=== PATIENT | male | born 1960 | race Caucasian/White ===

== ENCOUNTER 2016-12-25 09:54 | Outpatient (CLI) | payer MEDICAID | END 2016-12-25 09:55 | disposition home or self-care (01) | DX: Z86.19 Personal history of other infectious and parasitic diseases (principal) ==

== ENCOUNTER 2016-12-26 15:26 | Outpatient (CLI) | payer MEDICAID | END 2016-12-26 15:27 | disposition home or self-care (01) | DX: Z86.19 Personal history of other infectious and parasitic diseases (principal) ==

== ENCOUNTER 2017-03-06 09:00 | Outpatient (CLI) | payer MEDICAID | END 2017-03-06 09:01 | disposition home or self-care (01) | DX: M51.36 Other intervertebral disc degeneration, lumbar region (principal); M25.512 Pain in left shoulder ==

== ENCOUNTER 2017-03-12 09:07 | Outpatient (CLI) | payer MEDICAID | END 2017-03-12 09:08 | disposition home or self-care (01) | DX: I10 Essential (primary) hypertension (principal); E78.5 Hyperlipidemia, unspecified ==

== ENCOUNTER 2018-04-15 08:00 | Outpatient (CLI) | payer MEDICAID ==
[2018-04-15 19:04] LABS: ALBUMIN 3.9 g/dL (3.2-5.5); ALKALINE PHOSPHATASE 69 IU/L (42-121); ALT ALANINE AMINOTRANSFERASE 31 IU/L (10-60); AST ASPARTATE AMINOTRANSFERASE 23 IU/L (10-42); BILIRUBIN,DIRECT 0.2 mg/dL (0.1-0.5); BILIRUBIN,TOTAL 1.3 mg/dL (0.2-1.0); CHOL/HDL RATIO 3.2 (<5.0); CHOLESTEROL 143 mg/dL; HDL CHOLESTEROL 45 mg/dL; LDL CHOLESTEROL,CALCULATED 69 mg/dL; LDL/HDL RATIO 1.5 (<3.6); TOTAL PROTEIN 7.5 g/dL (6.7-8.2); VLDL CHOLESTEROL 29 mg/dL
== END 2018-04-15 08:01 | disposition home or self-care (01) ==
LOC: LAB.S 08:00
PROVIDERS: ATTEND Nurse Practitioner Family
DX: E78.5 Hyperlipidemia, unspecified (principal)
CPT/HCPCS: 36415; 80061; 80076; 83721

== ENCOUNTER 2018-11-25 08:00 | Outpatient (CLI) | payer MEDICAID ==
[2018-11-25 17:53] LABS: BASOPHILS % (AUTO) 0.5 %; EOSINOPHILS # (AUTO) 0.1 10^3/uL (0.0-0.7); EOSINOPHILS % (AUTO) 1.4 %; HGB - HEMOGLOBIN 14.9 g/dL (14.0-18.0); LYMPHOCYTES # (AUTO) 1.4 10^3/uL (1.5-3.5); LYMPHOCYTES % (AUTO) 19.6 %; MEAN CORPUSCULAR HEMOGLOBIN 30.2 pg (27.0-31.0); MEAN CORPUSCULAR HGB CONC 32.8 g/dL (32.0-36.0); MEAN PLATELET VOLUME 10.2 fL (7.4-11.4); MONOCYTES # (AUTO) 0.4 10^3/uL (0.0-1.0); MONOCYTES % (AUTO) 5.5 %; NEUTROPHILS # (AUTO) 5.1 10^3/uL (1.5-6.6); PLT - PLATELET COUNT 197 10^3/uL (130-450); RED BLOOD COUNT 4.92 10^6/uL (4.70-6.10); RED CELL DISTRIBUTION WIDTH 14.5 % (12.0-15.0); WHITE BLOOD COUNT 7.1 x10^3/uL (4.8-10.8)
[2018-11-25 18:25] LABS: ALBUMIN 4.2 g/dL (3.2-5.5); ALBUMIN/GLOBULIN RATIO 1.2 (1.0-2.2); ALKALINE PHOSPHATASE 70 IU/L (42-121); ALT ALANINE AMINOTRANSFERASE 15 IU/L (10-60); AST ASPARTATE AMINOTRANSFERASE 18 IU/L (10-42); BILIRUBIN,TOTAL 1.1 mg/dL (0.2-1.0); BUN - BLOOD UREA NITROGEN 22 mg/dL (6-20); CALCIUM 9.1 mg/dL (8.5-10.3); CARBON DIOXIDE - CO2 31 mmol/L (21-32); CHLORIDE 98 mmol/L (101-111); CHOLESTEROL 225 mg/dL; CREATININE 1.6 mg/dL (0.6-1.2); GFR - MDRD 44 (>89); GLUCOSE 118 mg/dL (70-100); HDL CHOLESTEROL 56 mg/dL; LDL CHOLESTEROL,CALCULATED 131 mg/dL; LDL/HDL RATIO 2.3 (<3.6); SODIUM 138 mmol/L (135-145); TOTAL PROTEIN 7.8 g/dL (6.7-8.2); VLDL CHOLESTEROL 38 mg/dL
== END 2018-11-25 23:59 | disposition home or self-care (01) ==
LOC: LAB.S 08:00
PROVIDERS: ATTEND Nurse Practitioner Family
DX: I10 Essential (primary) hypertension (principal); E78.5 Hyperlipidemia, unspecified; Z12.5 Encounter for screening for malignant neoplasm of prostate
CPT/HCPCS: 36415; 80053; 80061; 83721; 84153; 84443; 85025

== ENCOUNTER 2018-12-02 08:00 | Outpatient (CLI) | payer MEDICAID ==
[2018-12-02 17:58] LABS: CREATININE 1.6 mg/dL (0.6-1.2)
== END 2018-12-02 23:59 | disposition home or self-care (01) ==
LOC: LAB.S 08:00
PROVIDERS: ATTEND Nurse Practitioner Family
DX: N18.3 Chronic kidney disease, stage 3 (moderate) (principal)
CPT/HCPCS: 36415; 80048

== ENCOUNTER 2019-03-24 08:00 | Outpatient (CLI) | payer MEDICAID ==
[2019-03-24 17:51] LABS: CHOL/HDL RATIO 3.3 (<5.0); CHOLESTEROL 211 mg/dL; HDL CHOLESTEROL 63 mg/dL; LDL CHOLESTEROL,CALCULATED 128 mg/dL; VLDL CHOLESTEROL 20 mg/dL
== END 2019-03-24 23:59 | disposition home or self-care (01) ==
LOC: LAB.S 08:00
PROVIDERS: ATTEND Nurse Practitioner Family
DX: E78.5 Hyperlipidemia, unspecified (principal)
CPT/HCPCS: 36415; 80061; 83721

== ENCOUNTER 2020-05-17 08:50 | Outpatient (CLI) | payer MEDICAID ==
[2020-05-17 15:08] LABS: BASOPHILS # (AUTO) 0.1 10^3/uL (0.0-0.1); BASOPHILS % (AUTO) 0.7 %; EOSINOPHILS # (AUTO) 0.1 10^3/uL (0.0-0.7); HGB - HEMOGLOBIN 14.5 g/dL (14.0-18.0); LYMPHOCYTES # (AUTO) 1.2 10^3/uL (1.5-3.5); LYMPHOCYTES % (AUTO) 17.1 %; MEAN CORPUSCULAR HEMOGLOBIN 29.4 pg (27.0-31.0); MEAN CORPUSCULAR HGB CONC 31.7 g/dL (32.0-36.0); MEAN CORPUSCULAR VOLUME 92.5 fL (80.0-94.0); MEAN PLATELET VOLUME 11.8 fL (7.4-11.4); MONOCYTES # (AUTO) 0.4 10^3/uL (0.0-1.0); MONOCYTES % (AUTO) 5.1 %; NEUTROPHILS # (AUTO) 5.2 10^3/uL (1.5-6.6); PLT - PLATELET COUNT 180 10^3/uL (130-450); RED BLOOD COUNT 4.94 10^6/uL (4.70-6.10); RED CELL DISTRIBUTION WIDTH 13.7 % (12.0-15.0); WHITE BLOOD COUNT 6.8 x10^3/uL (4.8-10.8)
[2020-05-17 16:07] LABS: ALBUMIN 4.4 g/dL (3.2-5.5); ALBUMIN/GLOBULIN RATIO 1.4 (1.0-2.2); ALKALINE PHOSPHATASE 62 IU/L (42-121); ALT ALANINE AMINOTRANSFERASE 18 IU/L (10-60); AST ASPARTATE AMINOTRANSFERASE 20 IU/L (10-42); BILIRUBIN,TOTAL 0.8 mg/dL (0.2-1.0); BUN - BLOOD UREA NITROGEN 29 mg/dL (6-20); CALCIUM 9.1 mg/dL (8.5-10.3); CARBON DIOXIDE - CO2 26 mmol/L (21-32); CHLORIDE 104 mmol/L (101-111); CHOL/HDL RATIO 4.1 (<5.0); CHOLESTEROL 207 mg/dL; CREATININE 1.6 mg/dL (0.6-1.2); GLUCOSE 115 mg/dL (70-100); HDL CHOLESTEROL 51 mg/dL; LDL CHOLESTEROL,CALCULATED 130 mg/dL; LDL/HDL RATIO 2.5 (<3.6); SODIUM 136 mmol/L (135-145); TOTAL PROTEIN 7.6 g/dL (6.7-8.2); VLDL CHOLESTEROL 26 mg/dL
== END 2020-05-17 08:51 | disposition home or self-care (01) ==
LOC: LAB.S 08:50
PROVIDERS: ATTEND Physician Assistant
DX: Z00.00 Encounter for general adult medical examination without abnormal findings (principal); Z79.899 Other long term (current) drug therapy; I12.9 Hypertensive chronic kidney disease with stage 1 through stage 4 chronic kidney disease, or unspecified chronic kidney disease; N18.3 Chronic kidney disease, stage 3 (moderate); E78.5 Hyperlipidemia, unspecified
CPT/HCPCS: 36415; 80053; 80061; 83721; 84153; 84443; 85025

== ENCOUNTER 2022-03-23 09:58 | Outpatient (CLI) | payer MEDICAID ==
[2022-03-23 14:09] LABS: BASOPHILS # (AUTO) 0.1 10^3/uL (0.0-0.1); BASOPHILS % (AUTO) 0.8 %; EOSINOPHILS # (AUTO) 0.1 10^3/uL (0.0-0.7); HCT - HEMATOCRIT 43.8 % (42.0-52.0); HGB - HEMOGLOBIN 14.7 g/dL (14.0-18.0); LYMPHOCYTES # (AUTO) 1.5 10^3/uL (1.5-3.5); LYMPHOCYTES % (AUTO) 23.7 %; MEAN CORPUSCULAR HEMOGLOBIN 30.2 pg (27.0-31.0); MEAN CORPUSCULAR HGB CONC 33.6 g/dL (32.0-36.0); MEAN CORPUSCULAR VOLUME 90.1 fL (80.0-94.0); MEAN PLATELET VOLUME 11.4 fL (7.4-11.4); MONOCYTES # (AUTO) 0.4 10^3/uL (0.0-1.0); MONOCYTES % (AUTO) 6.1 %; NEUTROPHILS # (AUTO) 4.3 10^3/uL (1.5-6.6); NEUTROPHILS % (AUTO) 68.1 %; PLT - PLATELET COUNT 198 10^3/uL (130-450); RED BLOOD COUNT 4.86 10^6/uL (4.70-6.10); RED CELL DISTRIBUTION WIDTH 13.6 % (12.0-15.0); WHITE BLOOD COUNT 6.2 x10^3/uL (4.8-10.8)
[2022-03-23 14:36] LABS: THYROID STIMULATING HORMONE 1.74 uIU/mL (0.34-5.60)
[2022-03-23 14:51] LABS: CALCIUM 9.5 mg/dL (8.5-10.3); CARBON DIOXIDE - CO2 24 mmol/L (21-32); CHLORIDE 104 mmol/L (101-111); GLUCOSE 93 mg/dL (70-100); POTASSIUM 4.5 mmol/L (3.5-5.0); SODIUM 137 mmol/L (135-145)
[2022-03-23 15:30] LABS: ALBUMIN/GLOBULIN RATIO 1.1 (1.0-2.2); ALKALINE PHOSPHATASE 78 IU/L (42-121); ALT ALANINE AMINOTRANSFERASE 21 IU/L (10-60); AST ASPARTATE AMINOTRANSFERASE 22 IU/L (10-42); BILIRUBIN,TOTAL 0.6 mg/dL (0.2-1.0); BUN - BLOOD UREA NITROGEN 28 mg/dL (6-20); CHOL/HDL RATIO 4.2 (<5.0); CHOLESTEROL 208 mg/dL; CREATININE 1.6 mg/dL (0.6-1.2); GFR - MDRD 44 (>89); HDL CHOLESTEROL 50 mg/dL; LDL CHOLESTEROL,CALCULATED 118 mg/dL; LDL/HDL RATIO 2.4 (<3.6); TOTAL PROTEIN 7.6 g/dL (6.7-8.2); TRIGLYCERIDES 198 mg/dL; VLDL CHOLESTEROL 40 mg/dL
== END 2022-03-23 09:59 | disposition home or self-care (01) ==
LOC: LAB.S 09:58
PROVIDERS: ATTEND Nurse Practitioner Family
DX: I10 Essential (primary) hypertension (principal); E78.5 Hyperlipidemia, unspecified
CPT/HCPCS: 36415; 80053; 80061; 83721; 84443; 85025

== ENCOUNTER 2023-01-01 08:20 | Outpatient (CLI) | payer MEDICAID ==
[2023-01-01 14:56] LABS: BASOPHILS % (AUTO) 0.6 %; EOSINOPHILS # (AUTO) 0.1 10^3/uL (0.0-0.7); EOSINOPHILS % (AUTO) 1.2 %; HCT - HEMATOCRIT 45.4 % (42.0-52.0); HGB - HEMOGLOBIN 14.5 g/dL (14.0-18.0); LYMPHOCYTES # (AUTO) 1.5 10^3/uL (1.5-3.5); LYMPHOCYTES % (AUTO) 21.1 %; MEAN CORPUSCULAR HEMOGLOBIN 29.3 pg (27.0-31.0); MEAN CORPUSCULAR HGB CONC 31.9 g/dL (32.0-36.0); MEAN CORPUSCULAR VOLUME 91.7 fL (80.0-94.0); MEAN PLATELET VOLUME 11.4 fL (7.4-11.4); MONOCYTES # (AUTO) 0.4 10^3/uL (0.0-1.0); MONOCYTES % (AUTO) 5.9 %; NEUTROPHILS # (AUTO) 4.9 10^3/uL (1.5-6.6); NEUTROPHILS % (AUTO) 71.1 %; PLT - PLATELET COUNT 170 10^3/uL (130-450); RED BLOOD COUNT 4.95 10^6/uL (4.70-6.10); RED CELL DISTRIBUTION WIDTH 13.9 % (12.0-15.0); WHITE BLOOD COUNT 6.9 x10^3/uL (4.8-10.8)
[2023-01-01 15:10] LABS: ALBUMIN 4.2 g/dL (3.2-5.5); ALBUMIN/GLOBULIN RATIO 1.1 (1.0-2.2); ALKALINE PHOSPHATASE 73 IU/L (42-121); ALT ALANINE AMINOTRANSFERASE 16 IU/L (10-60); AST ASPARTATE AMINOTRANSFERASE 18 IU/L (10-42); BILIRUBIN,TOTAL 0.9 mg/dL (0.2-1.0); BUN - BLOOD UREA NITROGEN 30 mg/dL (6-20); CALCIUM 9.1 mg/dL (8.5-10.3); CARBON DIOXIDE - CO2 28 mmol/L (21-32); CHLORIDE 100 mmol/L (101-111); CHOL/HDL RATIO 4.6 (<5.0); CHOLESTEROL 208 mg/dL; CREATININE 1.9 mg/dL (0.6-1.2); GFR - MDRD 36 (>89); GLUCOSE 109 mg/dL (70-100); HDL CHOLESTEROL 45 mg/dL; LDL CHOLESTEROL,CALCULATED 140 mg/dL; LDL/HDL RATIO 3.1 (<3.6); POTASSIUM 4.4 mmol/L (3.5-5.0); SODIUM 134 mmol/L (135-145); TOTAL PROTEIN 7.9 g/dL (6.7-8.2); TRIGLYCERIDES 113 mg/dL; VLDL CHOLESTEROL 23 mg/dL
[2023-01-01 15:25] LABS: THYROID STIMULATING HORMONE 2.22 uIU/mL (0.34-5.60)
== END 2023-01-01 08:21 | disposition home or self-care (01) ==
LOC: LAB.S 08:20
PROVIDERS: ATTEND Nurse Practitioner Family
DX: E78.5 Hyperlipidemia, unspecified (principal); R00.2 Palpitations; Z12.5 Encounter for screening for malignant neoplasm of prostate
CPT/HCPCS: 36415; 80053; 80061; 83721; 84153; 84443; 85025

== ENCOUNTER 2023-06-25 08:16 | Outpatient (CLI) | payer MEDICAID ==
[2023-06-25 14:27] LABS: BASOPHILS # (AUTO) 0.1 10^3/uL (0.0-0.1); BASOPHILS % (AUTO) 0.8 %; EOSINOPHILS # (AUTO) 0.1 10^3/uL (0.0-0.7); EOSINOPHILS % (AUTO) 1.8 %; HCT - HEMATOCRIT 40.6 % (42.0-52.0); HGB - HEMOGLOBIN 13.1 g/dL (14.0-18.0); LYMPHOCYTES # (AUTO) 1.3 10^3/uL (1.5-3.5); LYMPHOCYTES % (AUTO) 18.3 %; MEAN CORPUSCULAR HGB CONC 32.3 g/dL (32.0-36.0); MEAN CORPUSCULAR VOLUME 93.1 fL (80.0-94.0); MEAN PLATELET VOLUME 11.8 fL (7.4-11.4); MONOCYTES # (AUTO) 0.4 10^3/uL (0.0-1.0); MONOCYTES % (AUTO) 5.4 %; NEUTROPHILS # (AUTO) 5.3 10^3/uL (1.5-6.6); NEUTROPHILS % (AUTO) 73.4 %; PLT - PLATELET COUNT 158 10^3/uL (130-450); RED BLOOD COUNT 4.36 10^6/uL (4.70-6.10); RED CELL DISTRIBUTION WIDTH 13.5 % (12.0-15.0); WHITE BLOOD COUNT 7.3 x10^3/uL (4.8-10.8)
[2023-06-25 14:53] LABS: ALBUMIN 4.1 g/dL (3.2-5.5); ALBUMIN/GLOBULIN RATIO 1.3 (1.0-2.2); ALKALINE PHOSPHATASE 79 IU/L (42-121); ALT ALANINE AMINOTRANSFERASE 14 IU/L (10-60); AST ASPARTATE AMINOTRANSFERASE 14 IU/L (10-42); BILIRUBIN,TOTAL 0.4 mg/dL (0.2-1.0); BUN - BLOOD UREA NITROGEN 22 mg/dL (6-20); CALCIUM 9.4 mg/dL (8.5-10.3); CARBON DIOXIDE - CO2 31 mmol/L (21-32); CHLORIDE 106 mmol/L (101-111); CHOL/HDL RATIO 3.3 (<5.0); CHOLESTEROL 154 mg/dL; CREATININE 1.5 mg/dL (0.6-1.3); GFR - MDRD 47 (>89); GLUCOSE 117 mg/dL (74-104); HDL CHOLESTEROL 47 mg/dL; LDL CHOLESTEROL,CALCULATED 86 mg/dL; LDL/HDL RATIO 1.8 (<3.6); POTASSIUM 4.1 mmol/L (3.5-4.5); SODIUM 139 mmol/L (135-145); TOTAL PROTEIN 7.3 g/dL (6.4-8.9); TRIGLYCERIDES 105 mg/dL (48-352); VLDL CHOLESTEROL 21 mg/dL
== END 2023-06-25 08:17 | disposition home or self-care (01) ==
LOC: LAB.S 08:16
PROVIDERS: ATTEND Nurse Practitioner Family
DX: I12.9 Hypertensive chronic kidney disease with stage 1 through stage 4 chronic kidney disease, or unspecified chronic kidney disease (principal); N18.30 Chronic kidney disease, stage 3 unspecified; E78.5 Hyperlipidemia, unspecified
CPT/HCPCS: 36415; 80053; 80061; 83721; 85025

== ENCOUNTER 2023-11-21 07:00 | Outpatient (CLI) | payer MEDICAID ==
--- NOTE | 2023-11-21 14:29 | XRAY Report ---
PROCEDURE: Cervical Spine 2-3V INDICATIONS: CERVICAL RADICULOPATHY TECHNIQUE: 3 view(s) of the cervical spine were acquired. COMPARISON: None. FINDINGS: Bones: No fractures or dislocations to the C7-T1 level. The lateral masses of C1 appear intact on t he odontoid view. No suspicious bony lesions. Cervical straightening is present. There is moderate to severe disc space narrowing at C6-7 with anterior osteophytes. Scattered multilevel mild to modera te disc space narrowing is present as well as multilevel uncovertebral arthropathy. Soft tissues: No prevertebral soft tissue swelling. IMPRESSION: Multilevel degenerative changes most notable at C6-7. Reviewed by: Shannon Rodriguez MD on 11/21/2023 2:28 PM PST Approved by: Shannon Rodriguez MD on 11/21/2023 2:28 PM PST Station ID: [id number]
--- NOTE | 2023-11-21 14:30 | XRAY Report ---
PROCEDURE: Wrist 3+V RT INDICATIONS: RIGHT WRIST PAIN TECHNIQUE: 3 views of the wrist were acquired. COMPARISON: None. FINDINGS: Bones: No fractures or dislocations. No suspicious bony lesions. Mild joint space narrowing is pr esent at the first CMC joint, as well as the radiocarpal joint. No erosions. Soft tissues: No suspicious soft tissue calcifications or masses. IMPRESSION: Radiocarpal and first CMC degenerative change. Reviewed by: Shannon Rodriguez MD on 11/21/2023 2:28 PM PST Approved by: Shannon Rodriguez MD on 11/21/2023 2:28 PM PST Station ID: [id number]
== END 2023-11-21 23:59 | disposition home or self-care (01) ==
LOC: DI.S 07:00
PROVIDERS: ATTEND Registered Nurse
DX: M19.031 Primary osteoarthritis, right wrist (principal); M47.22 Other spondylosis with radiculopathy, cervical region

== ENCOUNTER 2024-02-05 08:19 | Outpatient (CLI) | payer MEDICAID ==
[2024-02-05 14:44] LABS: BASOPHILS # (AUTO) 0.1 10^3/uL (0.0-0.1); BASOPHILS % (AUTO) 0.8 %; EOSINOPHILS # (AUTO) 0.1 10^3/uL (0.0-0.7); HCT - HEMATOCRIT 38.3 % (42.0-52.0); HGB - HEMOGLOBIN 12.4 g/dL (14.0-18.0); LYMPHOCYTES # (AUTO) 1.2 10^3/uL (1.5-3.5); LYMPHOCYTES % (AUTO) 15.8 %; MEAN CORPUSCULAR HGB CONC 32.4 g/dL (32.0-36.0); MEAN CORPUSCULAR VOLUME 89.5 fL (80.0-94.0); MEAN PLATELET VOLUME 10.5 fL (7.4-11.4); MONOCYTES # (AUTO) 0.5 10^3/uL (0.0-1.0); MONOCYTES % (AUTO) 6.5 %; NEUTROPHILS # (AUTO) 5.8 10^3/uL (1.5-6.6); NEUTROPHILS % (AUTO) 75.6 %; PLT - PLATELET COUNT 266 10^3/uL (130-450); RED BLOOD COUNT 4.28 10^6/uL (4.70-6.10); RED CELL DISTRIBUTION WIDTH 13.4 % (12.0-15.0); WHITE BLOOD COUNT 7.7 x10^3/uL (4.8-10.8)
[2024-02-05 15:09] LABS: ALBUMIN 3.9 g/dL (3.2-5.5); ALBUMIN/GLOBULIN RATIO 1.1 (1.0-2.2); BILIRUBIN,TOTAL 0.7 mg/dL (0.2-1.0); CALCIUM 9.6 mg/dL (8.5-10.3); CREATININE 1.8 mg/dL (0.6-1.3); POTASSIUM 4.2 mmol/L (3.5-4.5); TOTAL PROTEIN 7.3 g/dL (6.4-8.9)
== END 2024-02-05 08:20 | disposition home or self-care (01) ==
LOC: LAB.S 08:19
PROVIDERS: ATTEND Nurse Practitioner Family
DX: N18.30 Chronic kidney disease, stage 3 unspecified (principal); Z12.5 Encounter for screening for malignant neoplasm of prostate
CPT/HCPCS: 36415; 80053; 84153; 85025

== ENCOUNTER 2024-02-08 07:54 | Outpatient (CLI) | payer MEDICAID ==
[2024-02-08 14:53] LABS: CRP - C-REACTIVE PROTEIN 2.8 mg/dL (<0.5); URIC ACID 6.9 mg/dL (4.4-7.6)
[2024-02-08 15:22] LABS: RHEUMATOID FACTOR NEGATIVE (Negative)
[2024-02-09 19:07] LABS: CYCLIC CITRULLINATED PEP IGG/A 0 units (0-19)
[2024-02-11 18:07] LABS: ANTINUCLEAR ANTIBODIES IFA Negative (.)
== END 2024-02-08 07:55 | disposition home or self-care (01) ==
LOC: LAB.S 07:54
PROVIDERS: ATTEND Nurse Practitioner Family
DX: M79.642 Pain in left hand (principal); M79.641 Pain in right hand; M79.89 Other specified soft tissue disorders
CPT/HCPCS: 36415; 84550; 85651; 86038; 86140; 86200; 86430

== ENCOUNTER 2024-04-08 08:00 | Outpatient (CLI) | payer MEDICAID ==
--- NOTE | 2024-04-08 12:21 | XRAY Report ---
PROCEDURE: Cervical Spine 2-3V INDICATIONS: CERVICAL RADICULOPATHY TECHNIQUE: 3 view(s) of the cervical spine were acquired. COMPARISON: 11/21/2023 FINDINGS: Bones: No fractures or dislocations to the T1 level. Moderate degenerative disc height loss and endp late spurring mainly at C6-7. Bilateral multilevel facet hypertrophy. The lateral masses of C1 appear intact on the odontoid view. No suspicious bony lesions. Soft tissues: No prevertebral soft tissue swelling. IMPRESSION: Moderate disc and endplate degeneration at C6-7, similar compared to the prior exam. Reviewed by: Guillermina Lin MD on 04/08/2024 12:19 PM PDT Approved by: Guillermina Lin MD on 04/08/2024 12:19 PM PDT Station ID: [id number]
--- NOTE | 2024-04-08 12:23 | XRAY Report ---
PROCEDURE: Wrist 3+V RT INDICATIONS: PAIN IN RIGHT WRIST TECHNIQUE: 3 views of the wrist were acquired. COMPARISON: 11/21/2023 FINDINGS: Bones: No fractures or dislocations. No suspicious bony lesions. There is joint space loss and mode rate hypertrophic spurring at the first carpometacarpal joint. Prominent joint space loss incidentall y noted at the first, third, and to a lesser extent second metacarpophalangeal joints. Mild diffuse r adiocarpal joint space loss. Soft tissues: No suspicious soft tissue calcifications or masses. IMPRESSION: Scattered osteoarthritic changes without significant progression compared to the prior exam. Reviewed by: Guillermina Lin MD on 04/08/2024 12:21 PM PDT Approved by: Guillermina Lin MD on 04/08/2024 12:21 PM PDT Station ID: [id number]
== END 2024-04-08 23:59 | disposition home or self-care (01) ==
LOC: DI.S 08:00
PROVIDERS: ATTEND Emergency Medicine
DX: M47.812 Spondylosis without myelopathy or radiculopathy, cervical region (principal); M19.031 Primary osteoarthritis, right wrist

== ENCOUNTER 2024-04-21 08:58 | Outpatient (CLI) | payer MEDICAID ==
--- NOTE | 2024-04-21 16:57 | CT Report ---
PROCEDURE: Cervical Spine WO INDICATIONS: RIGHT CERVICAL RADICULOPATHY TECHNIQUE: Noncontrast 3 mm thick sections acquired from the skull base to the T4 level. Sagittal and coronal r eformats were then constructed. For radiation dose reduction, the following was used: automated exp osure control, adjustment of mA and/or kV according to patient size. COMPARISON: Cervical spine x-ray 04/08/2024. FINDINGS: Image quality: Mild motion degradation. Bones: No fractures or dislocations. Straightening of the normal cervical lordosis. Multilevel degen erative changes of the cervical spine with facet and uncovertebral arthropathy, disc height loss, end plate degenerative changes and spurring. This is most pronounced at C6-C7. There is at least mild villa tral canal stenosis at C6-C7. Otherwise, Central canal is patent. Moderate left neuroforaminal stenos is at C2-C3. Severe left neuroforaminal stenosis at C3-C4. Severe bilateral neuroforaminal stenosis a t C4-C5, right greater than left. Severe left and moderate right neuroforaminal stenosis at C6-C7. Mo derate to severe bilateral neuroforaminal stenosis at C6-C7. Mild bilateral neuroforaminal stenosis a t C7-T1. Visualized superior ribs are intact. Soft tissues: Prevertebral soft tissues are normal in thickness. No paravertebral hematomas. No ap ical pneumothoraces. IMPRESSION: Multilevel degenerative changes of the cervical spine as described above, most pronounced at C6-C7. Reviewed by: Taco Aparicio MD on 04/21/2024 4:56 PM PDT Approved by: Taco Aparicio MD on 04/21/2024 4:56 PM PDT Station ID: [id number]
== END 2024-04-21 08:59 | disposition home or self-care (01) ==
LOC: DI 08:58
PROVIDERS: ATTEND Emergency Medicine
DX: M47.812 Spondylosis without myelopathy or radiculopathy, cervical region (principal); M48.02 Spinal stenosis, cervical region